=== PATIENT | male | born 1985 | race Hispanic/Latino ===

== ENCOUNTER 2018-06-30 20:05 | Emergency (ER) | payer BC | END 2018-06-30 20:52 | disposition home or self-care (01) | LOC: EDH 20:05 | DX: M20.011 Mallet finger of right finger(s) (principal); S69.91XA Unspecified injury of right wrist, hand and finger(s), initial encounter; X50.9XXA Other and unspecified overexertion or strenuous movements or postures, initial encounter; Y93.89 Activity, other specified; Y92.009 Unspecified place in unspecified non-institutional (private) residence as the place of occurrence of the external cause; Y99.8 Other external cause status | CPT/HCPCS: 29130; 73130 ==